=== PATIENT | female | born 1930 | race Caucasian/White ===

== ENCOUNTER → 2016-10-16 | Outpatient (CLI) | payer OTHER ==
[~2016-10-16] MED LIST: AMIODARONE PO; AMLODIPINE BESYL5 MG PO; ASPIRIN EC81 M1 PO; ASPIRIN81 M2 PO; AUGMENTIN875 MG PO; AVALIDE 300-12.1 TAB PO; B COMPLEX1 CA1 PO; BIOTIN PO; BIOTIN5 MG; BONIVA150 MG PO; CARAFATE PO; CARAFATE1 G PO; CARAFATE1 GM PO; CELEBREX; CELEBREX PO; CERTAGEN; CITRACAL + D CA1 TA1 PO; COQ-10100 MG PO; COZAAR25 MG PO; DARVOCET-N 1001 TA1 PO; DIOVAN HCT 1601 EACH PO; DITROPAN PO; DITROPAN XL5 M1 PO; FISH OIL 1,0001 CAP PO; FISH OIL PO; FLAGYL PO; FLAX SEED OIL1000 M1 PO; FLAX SEED OIL1000 MG; FML LIQUIFILM OD; GENTEAL GEL DRO25 ML OU; HARD NAILS2500 MCG PO; HUMALOG; HUMALOG100 U/M1; HYZAAR; IMDUR-ER60 M2 PO; INSULIN PUMP; IRBESARTAN-HCT1 EAC1 PO; IRON1 TAB PO; ISOSORBIDE DINI30 MG; LEVOFLOXACIN500 MG PO; LEVOTHYROXINE75 MCG PO; LEVOTHYROXINE88 MCG PO; LEVOXYL125 MC1 PO; LIPITOR; LISINOPRIL PO; MACROBID100 MG PO; MACRODANTIN PO; MAG-OX 400400 M1 PO; MAG-OX 400400 MG PO; MAGNESIUM OXID500 MG PO; MELOXICAM15 MG PO; METOPROLOL SUCC25 MG PO; METOPROLOL TAR25 MG PO; MICRO-K10 MEQ PO; NITROFURANTOIN100 M2; NITROSTAT0.4 MG SL; NORCO 10-325 TA1 TAB PO; NORCO1 TAB 10/3 PO; OYSTER CALCIUM500 MG PO; PANTOPRAZOLE SO20 MG PO; PANTOPRAZOLE SO40 MG PO; PHENERGAN25 MG PO; PLAVIX PO; POTASSIUM CHLO10 MEQ PO; POTASSIUM CHLO20 ME1 PO; PRILOSEC; PRILOSEC20 MG; PRILOSEC40 MG PO; PROLIA60 MG/1 ML SQ; PROTONIX PO; PYRIDIUM PO; REGLAN; REGLAN PO; REGLAN10 MG PO; SNAP INSULIN P1 EACH MC; SYNTHROID; SYNTHROID0.1 MG PO; TOPROL XL 50 MG50 MG PO; TRAMADOL HCL50 M2 PO; TRIMPEX100 MG PO; VITAMIN C1000 M2 PO; VITAMIN D50000 UNIT PO; VITAMIN E PO; VITAMIN E400 UNI2 PO; WAL-ITIN10 MG/TAB PO; ZOCOR PO; ZOFRAN ODT4 MG PO; ZOFRAN PO; [UNRECOGNIZED DRUG - CODE]; [UNRECOGNIZED DRUG - CODE] PO; [UNRECOGNIZED DRUG - OTHER]; [UNRECOGNIZED DRUG - OTHER]; [UNRECOGNIZED DRUG - OTHER]; [UNRECOGNIZED DRUG - OTHER] OU; [UNRECOGNIZED DRUG - OTHER] PO; [UNRECOGNIZED DRUG - REMARK] PO
--- NOTE | ~2016-10-16 | MY11 ---
[facility]. [facility] A Service of [facility] RADIOLOGY TEXT RESULTS PATIENT: SANDRA TALLEY LOCATION: [facility] : 30 UNIT #: [id number] AGE: [address]: Kelsey Brannon MD SEX: F ORDER DR: [id number] [place] [id number] O MR#: [id number] Acc #: [id number] NAME: SANDRA TALLEY : 1930 SEX: F STUDY DATE/TIME: 10/16/2016 13:12 UNIT: [facility] ROOM: STUDY DESCRIPTION: MY Mammogram Screening [place] Attending Physician: Kelsey Brannon M.D. Referring Physician: Kelsey Brannon M.D. Ordering Physician: Kelsey Brannon M.D. Primary Care Physician: Kelsey Brannon M.D. MEDICAL IMAGING REPORT This report is preliminary unless electronic signature is present. EXAM Bilateral digital screening mammogram with CAD, 10/16/2016 INDICATION 86-year-old female for routine screening. No reported problems and no personal history of breast cancer. Family history positive in a niece. History of benign biopsy on the right years ago. TECHNIQUE CC and MLO views of the breast were obtained and reviewed with an FDA-approved CAD device. COMPARISON 09/20/2015, 08/27/2014, 06/05/2013 FINDINGS Breast parenchyma is composed of scattered fibroglandular densities and the pattern is unchanged. Pacemaker power pack device projects of the left axilla also unchanged. Stereotactic biopsy clip in the right breast. There is no new dominant nodule or mass in either breast. No new suspicious cluster of microcalcifications. Benign-appearing calcifications are present bilaterally. IMPRESSION Benign screening mammogram. One year followup recommended. Patients over the age of 40 are entered into a reminder system with target due date for the next mammogram. A result letter will also be sent to the patient. BIRADS: 2 Benign Finding [facility] A Service of [facility] RADIOLOGY TEXT RESULTS PATIENT: SANDRA TALLEY LOCATION: [facility] : 30 UNIT #: [id number] AGE: [address]: Kelsey Brannon MD SEX: F ORDER DR: Dictated by... Corbin Campos M.D. THIS IS AN ELECTRONICALLY VERIFIED REPORT Corbin Campos M.D. at 10/16/2016 5:06 PM KAVYA/matthias TD: 10/16/2016 16:14 JOB #: [id number] MEDICAL IMAGING REPORT
== END | disposition home or self-care (01) ==
LOC: SMAM 12:41
DX: Z12.31 Encounter for screening mammogram for malignant neoplasm of breast (principal); Z80.3 Family history of malignant neoplasm of breast
CPT/HCPCS: G0202

== ENCOUNTER → 2017-03-26 | Outpatient (CLI) | payer OTHER ==
--- NOTE | ~2017-03-26 | CT57 ---
[facility]. [facility] A Service of [facility] & [facility] RADIOLOGY TEXT RESULTS PATIENT: SANDRA TALLEY LOCATION: [facility] : 30 UNIT #: [id number] AGE: [address]: Kelsey Brannon MD SEX: F ORDER DR: [id number] [place] [id number] O MR#: [id number] [facility] #: [id number] NAME: SANDRA TALLEY : 1930 SEX: F STUDY DATE/TIME: 03/26/2017 9:55 UNIT: [facility] ROOM: STUDY DESCRIPTION: CT Chest Wo Cont Attending Physician: Kelsey Brannon M.D. Referring Physician: Kelsey Brannon M.D. Ordering Physician: Kelsey Brannon M.D. Primary Care Physician: Kelsey Brannon M.D. MEDICAL IMAGING REPORT This report is preliminary unless electronic signature is present. EXAM Chest CT no contrast 03/26/2017 INDICATIONS COPD, shortness of air since July of last year. Symptoms worse with walking or exercise. History of bypass surgery, COPD, diabetes. TECHNIQUE Noncontrast CT of the chest was performed. This CT exam was performed with one or more of the following radiation dose reduction techniques: automatic control, adjustment of mA and/or kV according to patient size, and iterative reconstruction. COMPARISON None. Correlation is made with chest x-ray 02/01/[address] CHEST: There is no pleural effusion. There is scoliosis. There is pleural thickening and atelectasis associated with the major fissure on the left. There is biapical scarring and fibrosis left greater than right. Probable more confluent scarring and a nodular configuration in the left lung apex measuring up to a cm. There is more confluent subpleural fibrosis and scar slightly more inferiorly in the upper lobes left greater than right. This is associated with calcification and most characteristic of a benign etiology. No evidence of pneumonia. There is some minimal subpleural scarring in the right lower lobe. Included thyroid unremarkable. There is streak artifact from left shoulder surgery. No pericardial effusion. No axillary adenopathy. Aorta demonstrates ectasia and atherosclerotic change. Reactive-appearing mediastinal nodes are present. Included upper abdomen negative. Osseous structures demonstrate no STS. [facility] A Service of [facility] & [facility] RADIOLOGY TEXT RESULTS PATIENT: SANDRA TALLEY LOCATION: [facility] : 30 UNIT #: [id number] AGE: [address]: Kelsey Brannon MD SEX: F ORDER DR: suspicious bone lesion. IMPRESSION 1. There is no evidence of pneumonia or pleural effusion. 2. There is biapical pleural scarring and fibrotic change with a more confluent nodular area of scarring in the left lung apex measuring a cm. This is likely to be benign and there has been apical scarring on prior chest x-rays dating back to least 2013. This has not been previously evaluated with CT however. Suggest interval followup CT in 3-6 months for reassessment of stability. 3. Reactive-appearing mediastinal nodes. 4. Upper abdomen demonstrates no acute finding. Dictated by... Corbin Campos M.D. THIS IS AN ELECTRONICALLY VERIFIED REPORT Corbin Campos M.D. at 03/29/2017 7:24 AM KAVYA/omar TD: 03/26/2017 22:55 JOB #: [id number] MEDICAL IMAGING REPORT Page 1 of 1
== END | disposition home or self-care (01) ==
LOC: SCT 09:28 → CCAT 10:00
DX: J44.9 Chronic obstructive pulmonary disease, unspecified (principal); J94.8 Other specified pleural conditions; J98.4 Other disorders of lung
CPT/HCPCS: 71250